=== PATIENT | female | born 1955 | race Caucasian/White ===

== ENCOUNTER 2018-08-13 19:53 | Emergency (ER) | payer BC ==
[2018-08-13 20:01] VITALS: BP 143/86
--- NOTE | 2018-08-13 20:01 | ER Report ---
History and Physical Time Seen By MD: 20:01 HPI/ROS CHIEF COMPLAINT: Left 1st digit laceration HISTORY OF PRESENT ILLNESS: Patient is a 63-year-old female here with complaints of left 1st digit laceration on the distal aspect of the finger through the nail not involving the nailbed. Patient reportedly was chopping wood when she struck her finger with the hatchet. Patient is well-appearing at time of evaluation, neurovascular exam intact. REVIEW OF SYSTEMS: Constitutional: No fever, no chills. Musculoskeletal: Left 1st digit laceration through nail Skin: No rashes. Neurological: Neurovascular exam intact Allergies: Coded Allergies: No Known Drug Allergies (Unverified , 08/13/18) Home Meds No Active Prescriptions or Reported Meds Constitutional Vital Sign - Last 24 Hours 08/13/18 20:01 Temp 97.9 Pulse 58 Resp 12 B/P (MAP) 143/86 Pulse Ox 95 O2 Delivery Room Air Physical Exam General Appearance: The patient is alert, has no immediate need for airway protection and no signs of toxicity. No acute distress Neurological: Neurovascular exam intact in the distal extremity, capillary refill less than 2 seconds. Skin: Warm and dry, no rashes. Musculoskeletal: Tenderness on palpation of the laceration and partial nail avulsion. DIFFERENTIAL DIAGNOSIS: After history and physical exam differential diagnosis was considered for laceration, fracture, partial amputation Medical Decision Making ED Course/Re-evaluation ED Course Patient is a 63-year-old female here with complaints of a left 3rd digit laceration after striking her hand with a hatchet. Tetanus Is up-to-date. A digital ring block was completed using lidocaine, 3 4-0 sutures Ethilon were applied to the laceration site and Dermabond was used to adhere the nail together. Recommend suture removal in 7-10 days. Laceration was cleaned using chlorhexidine rinse. Patient was hemodynamically stable, neurovascularly intact prior to discharge. Procedure Laceration repair: A ring block was performed using approximately 5 mL 1% lidocaine without epinephrine. Patient's laceration was cleaned using chlorhexidine rinse. Laceration was closed using 34-0 sutures Ethilon with good approximation, hemostasis was achieved. Dermabond was used to adhere the nail laceration. Patient tolerated procedure well. 7-10 days and removal recommended. Decision to Disposition Date: August 13, 2018 Decision to Disposition Time: 20:35 Depart Departure Latest Vital Signs Vital Signs Date Time Temp Pulse Resp B/P (MAP) Pulse Ox O2 Delivery O2 Flow Rate FiO2 08/13/18 20:01 97.9 58 12 143/86 95 Room Air Impression: Primary Impression: Finger laceration Condition: Improved Disposition: HOME OR SELF-CARE New Scripts No Active Prescriptions or Reported Meds Patient Instructions: Finger Laceration (ED) Additional Instructions: Please have your 3 sutures removed in 7-10 days. Please monitor for signs of infection including redness, drainage, fevers, swelling. Please take a breath in or Tylenol as needed for primary pain control. ERNA GOMEZ DO August 13, 2018 20:01
== END 2018-08-13 20:40 | disposition home or self-care (01) ==
LOC: ER 20:06
DX: S61.112A Laceration without foreign body of left thumb with damage to nail, initial encounter (principal)
CPT/HCPCS: 99282